=== PATIENT | male | born 1980 | race African-American/Black ===

== ENCOUNTER 2016-08-28 08:17 | Emergency (ER) | payer OTHER ==
[2016-08-28 08:21] VITALS: BP 129/95; PULSE 85; TEMP 98.5; BMI 27.6
--- NOTE | 2016-08-28 08:34 | PDOC ---
History of Present Illness - General Chief Complaint: Sore Throat Stated Complaint: sore throat Time Seen by Provider: 08/28/16 08:20 - History of Present Illness Initial Comments: 08/28/16 08:57 Chief complaint: Sore throat History of present illness: Sore throat since yesterday. Especially on the left side. Difficulty swallowing. Works at [employer]. Past medical history: Healthy male, no significant medical or surgical problems Social/family history reviewed and noncontributory Physical exam: Alert oriented well-developed well-nourished no acute distress Afebrile, vital signs normal Erythema, exudate left tonsil. 1 cm tender nodes left side of the neck. Ears clear Neck supple without mass or nodes Lungs clear CV regular without murmur or gallop Abdomen benign. No organomegaly Skin clear, no rash, medical turgor and mucous membranes Impression: Pharyngitis, with exposure to children Plan: Presumed strep. Antibiotics and rest. Motrin. Follow-up as necessary. Past History - Past Medical History Allergies/Adverse Reactions: Allergies Allergy/AdvReac Type Severity Reaction Status Date / Time Penicillins Allergy Verified 08/28/16 08:18 Home Medications: Ambulatory Orders Azithromycin [Zithromax 250mg Tablets -] 250 mg PO DAILY #6 tab 08/28/16 Ibuprofen [Motrin -] 600 mg PO QID PRN #20 tablet 08/28/16 - Psycho/Social/Smoking Cessation Hx Suicidal Ideation: No Smoking Status: No Smoking History: Never smoked Number of Cigarettes Smoked Daily: 0 Medical Decision Making - Medical Decision Making 08/28/16 09:27 Rapid strep is negative. Culture is pending. Because of the patient's occupation , antibiotics will be prescribed and the patient will be kept out of work for a few days until antibiotic therapy has been initiated. *DC/Admit/Observation/Transfer Diagnosis at time of Disposition: Pharyngitis Qualifiers: Pharyngitis/tonsillitis etiology: unspecified etiology Qualified Code(s): J02.9 - Acute pharyngitis, unspecified - Discharge Dispostion Disposition: HOME Condition at time of disposition: Stable Admit: No - Prescriptions Prescriptions: Ibuprofen [Motrin -] 600 mg PO QID PRN #20 tablet PRN Reason: Pain Azithromycin [Zithromax 250mg Tablets -] 250 mg PO DAILY #6 tab - Patient Instructions Printed Discharge Instructions: DI for Pharyngitis/Tonsillopharyngitis -- Adult - Post Discharge Activity Work/School Note: Back to Work
== END 2016-08-28 09:34 | disposition home or self-care (01) ==
LOC: FER 08:17
DX: J02.9 Acute pharyngitis, unspecified (principal)
CPT/HCPCS: 87070; 87430; 99281-25

== ENCOUNTER 2016-12-01 11:46 | Emergency (ER) | payer OTHER ==
[2016-12-01 12:03] VITALS: BP 138/101; PULSE 76; TEMP 97.9; BMI 27.8
--- NOTE | 2016-12-01 12:37 | PDOC ---
Attending Attestation - Resident Resident Name: Rashaad Simeon - ED Attending Attestation I have performed the following: I have examined & evaluated the patient, The case was reviewed & discussed with the resident, I agree w/resident's findings & plan, Exceptions are as noted - HPI HPI: 12/01/16 12:49 35y M no pmhx presents for evaluation of bump on his pelvic region. pt endorses having uprotected intercourse with female last week, and the past few days noticed alittle non painful bump on his pubic region. no pain, penile masses or ulcers, discharge, lymphadenopathy. no associated fever/chills, body aches. - Physicial Exam PE: 12/01/16 12:54 Physical exam: non tender, non erythemadous, non ulcerated papule on the lower abdomen approx 4-5 cm above base of penis. no penile leseions or discharge noted. no lympadenoapthy. - Medical Decision Making 12/01/16 12:54 pt requests STD testing counseled patient on importance of being protected all the time. will send hiv, rpr, gc will have pt fu with pmd return precatuions were discussed
--- NOTE | 2016-12-01 13:00 | PDOC ---
History of Present Illness - General Chief Complaint: Revisit, Lab Variance Stated Complaint: STD TESTING (HPV CONTACT) Time Seen by Provider: 12/01/16 11:55 - History of Present Illness Initial Comments: 12/01/16 13:00 35 yo M with no significant pmh who presents for STD r/o. Pt. concerned about STI status following recent disclosure of HPV + status from sexual partner. States that he was at work and received telephone call from recent sexual partner from 1 week ago that she was HPV +. He denies genital itching, pain, discharge, redness, burning, or irritation. Denies dysuira, swelling, or axillary/groin, neck lymph node enlargement, or general malaise or myalgias. Denies visualizing lesions or nodules. Complains of isolated papule on pubis. Does not recall onset of pubis papule. States that he thinks it is d/t recent irritation from shaving. Reports being sexually active with 2 female partners. Denies h/o STI's. Past History - Past Medical History Allergies/Adverse Reactions: Allergies Allergy/AdvReac Type Severity Reaction Status Date / Time Penicillins Allergy Verified 12/01/16 11:51 Home Medications: Ambulatory Orders NK [No Known Home Medication] 12/01/16 - Psycho/Social/Smoking Cessation Hx Anxiety: No Suicidal Ideation: No Smoking Status: No Smoking History: Never smoked Number of Cigarettes Smoked Daily: 0 Hx Alcohol Use: Yes (OCCASIONAL) Drug/Substance Use Hx: No Substance Use Type: None Review of Systems - Review of Systems Comments:: 12/01/16 13:26 GENERAL/CONSTITUTIONAL: No fever or chills. No weakness. HEAD, EYES, EARS, NOSE AND THROAT: No change in vision. No ear pain or discharge. No sore throat. CARDIOVASCULAR: No chest pain or shortness of breath RESPIRATORY: No cough, wheezing, or hemoptysis. GASTROINTESTINAL: No nausea, vomiting, diarrhea or constipation. GENITOURINARY: No dysuria, frequency, or change in urination. MUSCULOSKELETAL: No joint or muscle swelling or pain. No neck or back pain. SKIN: No rash NEUROLOGIC: No headache, vertigo, loss of consciousness, or change in strength/ sensation. ENDOCRINE: No increased thirst. No abnormal weight change HEMATOLOGIC/LYMPHATIC: No anemia, easy bleeding, or history of blood clots. ALLERGIC/IMMUNOLOGIC: No hives or skin allergy. *Physical Exam - Vital Signs Last Vital Signs Temp Pulse Resp BP Pulse Ox 97.9 F 76 15 138/101 99 12/01/16 11:50 12/01/16 11:50 12/01/16 11:50 12/01/16 11:50 12/01/16 11:50 - Physical Exam Comments: 12/01/16 13:26 GENERAL: Awake, alert, and fully oriented, in no acute distress HEAD: No signs of trauma, normocephalic, atraumatic EYES: PERRLA, EOMI, sclera anicteric, conjunctiva clear ENT: Auricles normal inspection, hearing grossly normal, nares patent, oropharynx clear without exudates. Moist mucosa NECK: Normal ROM, supple, no lymphadenopathy, JVD, or masses LUNGS: No distress, speaks full sentences, clear to auscultation bilaterally HEART: Regular rate and rhythm, normal S1 and S2, no murmurs, rubs or gallops, peripheral pulses normal and equal bilaterally. ABDOMEN: Soft, nontender, normoactive bowel sounds. No guarding, no rebound. No masses : Absent lymphadenopathy, nodules, lesions, vesicles, discharge at urethral meatus, or TTP at groin. EXTREMITIES: Normal inspection, Normal range of motion, no edema. No clubbing or cyanosis. NEUROLOGICAL: Cranial nerves II through XII grossly intact. Normal speech, normal gait, no focal sensorimotor deficits SKIN: Warm, Dry, normal turgor, no rashes or lesions noted. Medical Decision Making - Medical Decision Making 12/01/16 13:27 35 yo M with no significant pmh who presents with concern of STI. Sexual partner of 1 week ago recently disclosed HPV positive status to him per telephone. He was concerned of multiple STD exposure. Here for STI r/o. Reports single isolated incidence of failure to wear condom protection 1week ago. Currently has 2 female sexual partners. No signs and symptoms of STI. Currently stable and physical exam did not reveal lymphadenopathy, vesicles, discharge, or discharge at urethral meatus. ED Course: Counseled on STI prevention, STI signs and symptoms, and condom barrier method/ protection. *DC/Admit/Observation/Transfer Diagnosis at time of Disposition: STI (sexually transmitted infection) - Discharge Dispostion Disposition: HOME Condition at time of disposition: Good Admit: No - Patient Instructions Printed Discharge Instructions: Genital Warts Additional Instructions: Please Call [phone] in 3-4 hours to ask for results. Print Language: ARGENTINE - Attestations Physician Attestion: 12/01/16 13:20 I, Dr. Rashaad Simeon, attest that this document has been prepared under my direction and personally reviewed by me in its entirety. I further attest, that it accurately reflects all work, treatment, procedures and medical decision -making performed by me.
[2016-12-01 21:05] LABS: HIV 1 & 2 AB NEGATIVE; HIV 1 AGp24 NEGATIVE
== END 2016-12-01 13:25 | disposition home or self-care (01) ==
LOC: FER 11:46
DX: Z20.2 Contact with and (suspected) exposure to infections with a predominantly sexual mode of transmission (principal); Z88.0 Allergy status to penicillin
CPT/HCPCS: 36415; 86593; 87389; 87491; 87591; 99281-25

== ENCOUNTER 2017-02-01 00:38 | Emergency (ER) | payer OTHER ==
[2017-02-01] MEDS ORDERED: METHOCARBAMOL 500 MG TABLET PO ONE (00:49)
[2017-02-01] MEDS ORDERED: IBUPROFEN 600 MG TABLET (FP) PO ONE ×2 (00:49→01:01)
--- NOTE | 2017-02-01 00:53 | PDOC ---
History of Present Illness - General Stated Complaint: BACK PAIN Past History - Past Medical History Allergies/Adverse Reactions: Allergies Allergy/AdvReac Type Severity Reaction Status Date / Time Penicillins Allergy Verified 12/01/16 11:51 Home Medications: Ambulatory Orders Ibuprofen [Motrin -] 600 mg PO TID #21 tablet 02/01/17 Methocarbamol [Robaxin -] 500 mg PO TID #21 tablet 02/01/17 - Suicide/Smoking/Psychosocial Hx Smoking Status: No Smoking History: Never smoked Number of Cigarettes Smoked Daily: 0 Hx Alcohol Use: Yes (OCCASIONAL) Drug/Substance Use Hx: No Substance Use Type: None Review of Systems - Review of Systems Constitutional: No: Symptoms Reported, See HPI, Chills, Diaphoresis, Fever, Loss of Appetite, Malaise, Night Sweats, Weakness, Weight Stable, Unintentional Wgt. Loss, Unexplained wgt Loss, Other HEENTM: No: Symptoms Reported, See HPI, Eye Pain, Blurred Vision, Tearing, Recent change in vision, Double Vision, Cataracts, Ear Pain, Ocular Prothesis, Ear Discharge, Nose Pain, Nose Congestion, Tinnitus, Nose Bleeding, Hearing Loss , Throat Pain, Throat Swelling, Mouth Pain, Dental Problems, Difficulty Swallowing, Mouth Swelling, Other Cardiac (ROS): No: Symptoms Reported, See HPI, Chest Pain, Edema, Irregular Heart Rate, Lightheadedness, Palpitations, Syncope, Chest Tightness, Other ABD/GI: No: Symptoms Reported, See HPI, Abdominal Distended, Abd. Pain w/ defecation, Blood Streaked Bowels, Constipated, Diarrhea, Difficulty Swallowing , Nausea, Poor Appetite, Poor Fluid Intake, Rectal Bleeding, Vomiting, Indigestion, Abdominal cramping, Tarry Stools, Other : No: Symptoms Reported, See HPI, Burning, Dysuria, Discharge, Frequency, Flank Pain, Hematuria, Incontinence, Pain, Urgency, Testicular Mass, Testicular Swelling, Lesions, Testicular Pain, Other Musculoskeletal: Yes: Back Pain, Muscle Pain, Joint Stiffness. No: Symptoms Reported, See HPI, Gout, Joint Pain, Joint Swelling, Muscle Weakness, Neck Pain , Other Integumentary: No: Symptoms Reported, See HPI, Bruising, Change in Color, Change in Hair/Nails, Dryness, Erythema, Flushing, Lesions, Lumps, Pallor, Pruritus, Rash, Sweating, Other Neurological: No: Symptoms reported, See HPI, Headache, Numbness, Paresthesia, Pre-Existing Deficit, Seizure, Tingling, Tremors, Weakness, Unsteady Gait, Ataxia, Dizziness, Other Psychiatric: No: Anxiety, Depression, Frequent Crying, Stressors, Sleep Pattern Change, Emotional Problems, Mood Swings, Change in Appetite, Other Endocrine: No: Symptoms Reported, See HPI, Excessive Sweating, Flushing, Intolerance to Cold, Intolerance to Heat, Increased Hunger, Increased Thirst, Increased Urine, Unexplained Weight Gain, Unexplained Weight Loss, Change in Weight, Other *Physical Exam - Physical Exam General Appearance: Yes: Nourished, Appropriately Dressed HEENT: positive: EOMI, SONG, Normal ENT Inspection, Normal Voice, Symmetrical, TMs Normal, Pharynx Normal Neck: positive: Trachea midline, Normal Thyroid, Supple Respiratory/Chest: positive: Lungs Clear, Normal Breath Sounds. negative: Respiratory Distress, Accessory Muscle Use Cardiovascular: positive: Regular Rhythm, Regular Rate, S1, S2 Gastrointestinal/Abdominal: positive: Flat, Soft Musculoskeletal: positive: Normal Inspection, Muscle Spasm Extremity: positive: Normal Capillary Refill, Normal Inspection, Normal Range of Motion, Pelvis Stable. negative: Tender Integumentary: positive: Normal Color, Dry, Warm Neurologic: positive: shipping coordinator II-XII NML intact, Fully Oriented, Alert, Normal Mood/ Affect, Normal Response, Motor Strength 5/5, Other (no sciatica at this time) Medical Decision Making - Medical Decision Making 02/01/17 01:16 Pt comes with intense back pain in the lower thoracic/ upper lumbar area that began today at work. Pt states that he has no pain radiating down the legs. 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 Pt will be given muscle relaxants and NSAIDS and we will get XRay of T- and L-spine. Pt will follow with PMD if all is well. He will be sent home with muscle relaxants and motrin and rest.. Heat or ice to back. *DC/Admit/Observation/Transfer Diagnosis at time of Disposition: Muscle spasm of back - Discharge Dispostion Disposition: HOME Condition at time of disposition: Stable Admit: No - Prescriptions Prescriptions: Ibuprofen [Motrin -] 600 mg PO TID #21 tablet Methocarbamol [Robaxin -] 500 mg PO TID #21 tablet - Patient Instructions Printed Discharge Instructions: DI for Back Spasm - Post Discharge Activity Forms/Work/School Notes: Back to Work
[2017-02-01] MEDS ORDERED: METHOCARBAMOL 500 MG TABLET ONE (01:00)
[2017-02-01 01:11] VITALS: BP 130/84; PULSE 68; TEMP 97.8; BMI 28.2
== END 2017-02-01 02:16 | disposition home or self-care (01) ==
LOC: FER 00:38
DX: M62.830 Muscle spasm of back (principal)
CPT/HCPCS: 72070-TC; 72100-TC; 99282-25

== ENCOUNTER 2019-12-20 00:32 | Emergency (ER) | payer OTHER ==
[2019-12-20 00:35] VITALS: BP 148/111; PULSE 72; TEMP 98; BMI 27.1
[2019-12-20] MEDS ORDERED: IBUPROFEN 600 MG TABLET (FP) PO ONE ×2 (00:43→00:52)
--- NOTE | 2019-12-20 00:43 | PDOC ---
History of Present Illness - General Chief Complaint: Sore Throat Stated Complaint: SORE THROAT Time Seen by Provider: 12/20/19 00:39 History Source: Patient Exam Limitations: No Limitations - History of Present Illness Initial Comments: 12/20/19 00:40 This is a 38-year-old male who comes in complaining of a sore throat x2-day. Patient said he had a fever yesterday but denies any fevers today. Patient is otherwise healthy. Allergies: as per nursing notes Past Medical History: none Social history: Lives with family. No smoking. No alcohol. No illicit drugs. Surgical history: None General: No fevers or chills, no weakness, no weight loss HEENT: No change in vision. + sore throat,. No ear pain CardioVascular: no chest discomfort. No shortness of breath Respiratory:No cough, or wheezing. Gastrointestinal: no nausea, vomiting, diarrhea or constipation, No rectal bleeding Genitourinary: No dysuria, hematuria, or frequency Musculoskeletal: No joint or muscle pain or swelling Neurologic: No headache, vertigo, dizziness or loss of consciousness Psychiatric: nor depression Skin: No rashes or easy bruising Endocrine: no increased thirst or abnormal weight change Allergic: no skin or latex allergy All other systems reviewed and normal GENERAL: The patient is awake, alert, and fully oriented, in no acute distress. HEENT:Head is normal with no signs of trauma. Eyes: Pupils equal, round and reactive to light, Ears, are normal. Neck is supple. No Lymphadenopathy. Throat: There is moderate amount of erythema however the tonsils are normal and there is no exudate. EXTREMITIES:atraumatic, Normal range of motion, no edema. NEUROLOGICAL: Normal speech, normal gait. PSYCH: Normal mood, normal affect. SKIN: Warm, Dry, normal turgor, no rashes or lesions noted. Assessment and plan: This is a 38-year-old male with sore throat x2 days. Rapid strep was sent which was negative patient given Motrin and discharged home Past History - Medical History Allergies/Adverse Reactions: Allergies Allergy/AdvReac Type Severity Reaction Status Date / Time Penicillins Allergy Verified 03/06/17 18:12 Home Medications: Ambulatory Orders NK [No Known Home Medication] 09/06/19 COPD: No - Psycho-Social/Smoking History Smoking Status: No Smoking History: Never smoked Have you smoked in the past 12 months: No Number of Cigarettes Smoked Daily: 0 Information on smoking cessation initiated: No - Substance Abuse Hx (Audit-C & DAST Scrn) How often the patient has a drink containing alcohol: 2-4 times / month Number of drinks the patient has on a typical day: 1 or 2 How often the patient has six or more drinks on one occasion: Never Score: In Men: 4 or > Positive; In Women: 3 or > Positive: 2 Screen Result (Pos requires Nsg. Audit-10AR): Negative In the last yr the pt used illegal drug/Rx for NonMed reason: No Score: Yes response is considered Positive: 0 Screen Result (Positive result requires Nsg. DAST-10): Negative *Physical Exam - Vital Signs Last Vital Signs Temp Pulse Resp BP Pulse Ox 98.0 F 72 18 148/111 H 98 12/20/19 00:33 12/20/19 00:33 12/20/19 00:33 12/20/19 00:33 12/20/19 00:33 Discharge - Discharge Information Problems reviewed: Yes Clinical Impression/Diagnosis: Pharyngitis Qualifiers: Pharyngitis/tonsillitis etiology: unspecified etiology Qualified Code(s): J02.9 - Acute pharyngitis, unspecified Condition: Stable Disposition: HOME - Admission No - Follow up/Referral - Patient Discharge Instructions Additional Instructions: Tylenol or Motrin as needed for pain or fevers. Return to the emergency department immediately with ANY new, persistent or worsening symptoms. Continue any medications as previously prescribed by your physician. You should follow up with your primary doctor as soon as possible regarding today's emergency department visit. . Please make sure your doctor reviews the results of your emergency evaluation. Thank you for coming to the Emergency Department today for your care. It was a pleasure to see you today. Please note that your evaluation is INCOMPLETE until you follow-up with your doctor. - Post Discharge Activity
== END 2019-12-20 02:54 | disposition home or self-care (01) ==
LOC: FER 00:32
DX: J02.9 Acute pharyngitis, unspecified (principal)
CPT/HCPCS: 87070; 87880; 99282-25

== ENCOUNTER 2019-12-20 19:55 | Emergency (ER) | payer OTHER ==
[2019-12-20 20:00] VITALS: BP 143/96; PULSE 89; TEMP 98.2; BMI 27.1
[2019-12-20] MEDS ORDERED: AZITHROMYCIN 250 MG TABLET PO ONE (20:23)
[2019-12-20] MEDS ORDERED: AZITHROMYCIN 250 MG TABLET ONE (20:25)
--- NOTE | 2019-12-20 21:45 | PDOC ---
Documentation entered by Navin Collazo SCRIBE, acting as scribe for Patricia Caldwell MD. Patricia Caldwell MD: This documentation has been prepared by the [employer] can[employer] Angel, SCRIBE, under my direction and personally reviewed by me in its entirety. I confirm that the documentation accurately reflects all work, treatment, procedures, and medical decision making performed by me. History of Present Illness - General Chief Complaint: Sore Throat Stated Complaint: SORE THROAT Time Seen by Provider: 12/20/19 19:57 History Source: Patient Exam Limitations: No Limitations - History of Present Illness Initial Comments: 12/20/19 20:49 The patient is a 38 year old male with no significant past medical history who presents to the ED with 3 days of sore throat. The patient states he was here last night for similar symptoms and after being discharged with no antibiotics says his symptoms persisted. The patient states he drank tea to help with the pain, noting only temporary relief. The patient is having difficulty swallowing as well as having to constantly spit out his saliva because it is too painful to swallow most of the time. The patient denies fevers/chills, rhinorrhea or any other complaints. Allergies: Penicillin Social History: Patient works at [employer]. Drinks occasionally. Non- smoker. 12/20/19 21:34 Past History - Medical History Allergies/Adverse Reactions: Allergies Allergy/AdvReac Type Severity Reaction Status Date / Time Penicillins Allergy Verified 12/20/19 19:57 Home Medications: Ambulatory Orders Azithromycin 250 mg PO DAILY #4 tablet 12/20/19 COPD: No Other medical history: pt denies - Psycho-Social/Smoking History Smoking Status: No Smoking History: Never smoked Have you smoked in the past 12 months: No Number of Cigarettes Smoked Daily: 0 Information on smoking cessation initiated: No - Substance Abuse Hx (Audit-C & DAST Scrn) How often the patient has a drink containing alcohol: Monthly or less Score: In Men: 4 or > Positive; In Women: 3 or > Positive: 1 Screen Result (Pos requires Nsg. Audit-10AR): Negative Review of Systems - Review of Systems Able to Perform ROS?: Yes Comments:: 12/20/19 20:50 GENERAL/CONSTITUTIONAL: No fever or chills. No weakness. HEAD, EYES, EARS, NOSE AND THROAT: +Sore throat.No change in vision. No ear pain or discharge. CARDIOVASCULAR: No chest pain or shortness of breath. RESPIRATORY: No cough, wheezing, or hemoptysis. GASTROINTESTINAL: No nausea, vomiting, diarrhea or constipation. GENITOURINARY: No dysuria, frequency, or change in urination. MUSCULOSKELETAL: No joint or muscle swelling or pain. No neck or back pain. SKIN: No rash NEUROLOGIC: No headache, vertigo, loss of consciousness, or change in strength/sensation. ENDOCRINE: No increased thirst. No abnormal weight change. HEMATOLOGIC/LYMPHATIC: No anemia, easy bleeding, or history of blood clots. ALLERGIC/IMMUNOLOGIC: No hives or skin allergy. *Physical Exam - Vital Signs Last Vital Signs Temp Pulse Resp BP Pulse Ox 98.2 F 89 18 143/96 100 12/20/19 19:55 12/20/19 19:55 12/20/19 19:55 12/20/19 19:55 12/20/19 19:55 - Physical Exam 12/20/19 20:53 GENERAL: Awake, alert, and fully oriented, in no acute distress HEAD: No signs of trauma EYES: PERRLA, EOMI, sclera anicteric, conjunctiva clear ENT: +Erythematous oropharynx with tonsillar edema left greater than right. No abscess seen. Slightly tender moderately enlarged anterior cervical lymph node on the left side. Auricles normal inspection, hearing grossly normal, nares patent. Moist mucosa NECK: Normal ROM, supple, no lymphadenopathy, JVD, or masses LUNGS: Breath sounds equal, clear to auscultation bilaterally. No wheezes, and no crackles HEART: Regular rate and rhythm, normal S1 and S2, no murmurs, rubs or gallops ABDOMEN: Soft, nontender, normoactive bowel sounds. No guarding, no rebound. No masses EXTREMITIES: Normal range of motion, no edema. No clubbing or cyanosis. No cords, erythema, or tenderness NEUROLOGICAL: Cranial nerves II through XII grossly intact. Normal speech, normal gait SKIN: Warm, Dry, normal turgor, no rashes or lesions noted. Medical Decision Making - Medical Decision Making As noted above, this 38-year-old man without significant past medical history but who has presented here several times with acute pharyngitis returns today a fter being seen here yesterday with a sore throat. Quick strep was negative yesterday; throat culture still pending today. Patient states that his throat pain continues; states that he can barely swallow secondary to the pain. No new symptoms have developed. He denies fever/chills. Exam as noted with primarily left-sided erythema/inflammation and enlarged lymph nodes. Although throat culture is pending, because he is working in an environment ([employer]) where he is exposed to young adult population that is somewhat transient, he is at added risk for strep pharyngitis. Since his symptoms are progressing, will empirically start him on azithromycin ([facility]- [facility])[patient has a penicillin allergy with unknown allergic response]. Patient should not work for the next 48 hours. He should continue ibuprofen/ acetaminophen as needed for pain. He should return if he has worsening pain, high fever. Discharge - Discharge Information Problems reviewed: Yes Clinical Impression/Diagnosis: Pharyngitis Qualifiers: Pharyngitis/tonsillitis etiology: unspecified etiology Qualified Code(s): J02.9 - Acute pharyngitis, unspecified Condition: Stable Disposition: HOME - Additional Discharge Information Prescriptions: Azithromycin 250 mg PO DAILY #4 tablet - Follow up/Referral - Patient Discharge Instructions Patient Printed Discharge Instructions: DI for Pharyngitis/Tonsillopharyngitis -- Adult Additional Instructions: Azithromycin 250 mg daily for the next 4 days; next dose tomorrow Tylenol/Motrin/Aleve as needed for pain No work for the next 2 days Return to ER or see your doctor if you have persistent severe pain or develop fever/chills Follow-up with your general doctor within the next week - Post Discharge Activity Work/Back to School Note: Back to Work
[2019-12-21] MEDS ORDERED: LIDOCAINE VISCOUS 2% ORAL/TOP 20 ML UNIT-DOSE CUP ONE (07:30)
[2019-12-21] MEDS ORDERED: ACETAMINOPHEN INJECTION 100 ML IVPB ONE (07:30)
[2019-12-21] MEDS ORDERED: KETOROLAC TROMETHAMINE 30 MG/1 ML VIAL ONE (07:46)
[2019-12-21] MEDS ORDERED: DEXAMETHASONE SOD PHOSPHATE 4 MG/1 ML VIAL ONE (07:46)
[2019-12-21] MEDS ORDERED: CLINDAMYCIN PHOSPHATE 600 MG/4 ML VIAL ONE (07:46)
== END 2019-12-20 20:32 | disposition home or self-care (01) ==
LOC: FER 19:55
DX: J02.9 Acute pharyngitis, unspecified (principal)
CPT/HCPCS: 99284-25